=== PATIENT | male | born 1970 | race Caucasian/White ===

== ENCOUNTER 2016-12-23 16:38 | Emergency (ER) | payer SELFPAY | END 2016-12-23 16:55 | disposition home or self-care (01) | LOC: BURERS 16:38 | DX: K91.840 Postprocedural hemorrhage of a digestive system organ or structure following a digestive system procedure (principal); R04.0 Epistaxis; I10 Essential (primary) hypertension; F17.210 Nicotine dependence, cigarettes, uncomplicated | CPT/HCPCS: 99282 ==

== ENCOUNTER 2018-09-03 20:20 | Emergency (ER) | payer SELFPAY ==
[2018-09-03 21:28] LABS: ALT (SGPT) 49 U/L (8-55); AST (SGOT) 55 U/L (5-34); Albumin 4.7 g/dL (3.5-5.0); Alcohol 193 mg/dL (Less than 10); Alkaline Phosphatase 64 U/L (40-150); Anion Gap 16 mmol/L (10-20); BUN (Urea Nitrogen) Less than 4 mg/dL (8.9-20.6); Bilirubin, Total 0.8 mg/dL (0.2-1.2); Calc. Creatinine Clearance 0 mL/min (70-130); Calcium 9.4 mg/dL (7.8-10.44); Carbon Dioxide 23 mmol/L (22-29); Chloride 94 mmol/L (98-107); Estimated GFR-MDRD Greater than 90; Globulin 2.8 g/dL (2.4-3.5); Glucose 97 mg/dL (70-105); Potassium 4.4 mmol/L (3.5-5.1); Protein, Total 7.5 g/dL (6.0-8.3); Sodium 129 mmol/L (136-145)
[2018-09-03 21:32] LABS: CKMB 1.5 ng/mL (0-6.6); Troponin I Less than 0.010 ng/mL (< 0.028)
[2018-09-03 21:45] LABS: #Basophils 0.1 thou/uL (0.0-0.2); #Eosinphils 0.1 thou/uL (0.0-0.7); #Lymphocytes 2.5 thou/uL (1.20-3.40); #Monocytes 0.6 thou/uL (0.11-0.59); #Neutrophils 2.9 thou/uL (1.40-6.50); %Basophils 1.8 % (0.0-1.0); %Eosinophils 2.1 % (0.0-10.0); %Lymphocytes 40.8 % (21.0-51.0); %Neutrophils 46.3 % (42.0-75.0); Hemoglobin 15.6 g/dL (14.0-18.0); Mean Corpuscular HGB CONC 36.1 g/dL (32.0-36.0); Mean Corpuscular Hemoglobin 36.2 pg (27.0-31.0); Mean Platelet Volume 7.4 fL (7.4-10.4); PLT Morphology Comment Appears Decreased; Platelet Count 119 thou/uL (130-400); RBC Distribution Width 12.2 % (11.5-14.5); RBC Morphology Normal; Red Blood Cell (RBC) Count 4.32 mill/uL (4.70-6.10); White Blood Cell (WBC) Count 6.2 thou/uL (4.8-10.8)
--- NOTE | 2018-09-03 23:00 | CT ---
CT OF THE BRAIN WITHOUT CONTRAST: 09/03/18 Computed tomography of the brain was performed and compared with the prior study dated 06/14/13. Diffuse atrophy with mild to moderate compensatory dilatation of the ventricles is present. The degre e of atrophy has increased slightly in the interval. No intracranial mass, bleeding, or edema was fou nd. There is no sign of acute stroke. Atrophy is particularly prevalent in the cerebellar region. IMPRESSION: No acute intracranial findings. POS: HOME
== END 2018-09-03 22:15 | disposition home or self-care (01) ==
LOC: BURERS 20:20
DX: I10 Essential (primary) hypertension (principal); R42 Dizziness and giddiness; F10.20 Alcohol dependence, uncomplicated; Y90.6 Blood alcohol level of 120-199 mg/100 ml; F17.210 Nicotine dependence, cigarettes, uncomplicated; Z79.899 Other long term (current) drug therapy
CPT/HCPCS: 70450; 80053; 80307; 82553; 84484; 85025; 93005

== ENCOUNTER 2018-10-17 18:07 | Emergency (ER) | payer SELFPAY | END 2018-10-17 18:27 | disposition home or self-care (01) | LOC: BURERS 18:07 | DX: I10 Essential (primary) hypertension (principal); F17.210 Nicotine dependence, cigarettes, uncomplicated; Z79.899 Other long term (current) drug therapy | CPT/HCPCS: 99281 ==

== ENCOUNTER 2018-12-12 17:49 | Emergency (ER) | payer SELFPAY ==
[2018-12-12] MEDS ORDERED: Ketorolac Tromethamine 30 MG/ML VIAL ONE (18:04)
[2018-12-12] MEDS ORDERED: Fluorescein Opthalmic Strip ONE (18:05)
[2018-12-12] MEDS ORDERED: Tobramycin Sulfate 0.3% Ophth Susp 5 ml Bottle ONE (18:08)
== END 2018-12-12 18:30 | disposition home or self-care (01) ==
LOC: BURERS 17:49
DX: S05.12XA Contusion of eyeball and orbital tissues, left eye, initial encounter (principal); H11.32 Conjunctival hemorrhage, left eye; I10 Essential (primary) hypertension; F17.210 Nicotine dependence, cigarettes, uncomplicated; Z79.899 Other long term (current) drug therapy; Y33.XXXA Other specified events, undetermined intent, initial encounter
CPT/HCPCS: 99283; J1885

== ENCOUNTER 2020-02-15 10:40 | Emergency (ER) | payer SELFPAY ==
[2020-02-15 11:01] LABS: Mean Corpuscular HGB CONC 35.3 g/dL (32.0-36.0); Mean Corpuscular Hemoglobin 37.3 pg (27.0-31.0); Mean Platelet Volume 7.5 fL (7.4-10.4); Platelet Count 103 thou/uL (130-400); RBC Distribution Width 12.5 % (11.5-14.5); Red Blood Cell (RBC) Count 4.28 mill/uL (4.70-6.10); White Blood Cell (WBC) Count 6.7 thou/uL (4.8-10.8)
[2020-02-15 11:04] LABS: INR-International Normal Ratio 0.9; PTT 30.4 SEC (22.9-36.1); Prothrombin Time 12.1 sec (12.0-14.7)
[2020-02-15 11:06] LABS: #Basophils 0.1 thou/uL (0.0-0.2); #Eosinphils 0.1 thou/uL (0.0-0.7); #Lymphocytes 2.3 thou/uL (1.20-3.40); #Monocytes 0.7 thou/uL (0.11-0.59); #Neutrophils 3.5 thou/uL (1.40-6.50); %Basophils 1.5 % (0.0-1.0); %Eosinophils 1.6 % (0.0-10.0); %Lymphocytes 34.2 % (21.0-51.0); %Monocytes 10.9 % (0.0-10.0); %Neutrophils 51.9 % (42.0-75.0)
--- NOTE | 2020-02-15 11:08 | CT ---
CT BRAIN NONCONTRAST: DATE: 02/15/2020 10:55 AM HISTORY: 49-year-old male with acute stroke: Right upper extremity weakness since this morning. Dr. Beckwith verbally gave this stroke alert protocol report by telephone to Dr. Adamson of [facility] at 11:02 AM 02/15/2020. FINDINGS: There is no evidence of acute intra-axial or extra-axial hemorrhage. There is no midline shift or any other mass effect. There is no extra-axial fluid collection. There is no evidence of obstructive hydrocephalus. Calvarium is intact. There is diffuse brain parenchymal volume loss. There has been no interval change. IMPRESSION: 1) No acute intracranial findings. 2) involutional changes, greater than typical for this age group.
[2020-02-15 11:12] LABS: ALT (SGPT) 54 U/L (8-55); AST (SGOT) 67 U/L (5-34); Acetaminophen Less than 6.0 mcg/mL (10.0-30.0); Albumin 4.6 g/dL (3.5-5.0); Alcohol 114 mg/dL (Less than 10); Alkaline Phosphatase 68 U/L (40-110); Anion Gap 17 mmol/L (10-20); BUN (Urea Nitrogen) 5 mg/dL (8.9-20.6); Bilirubin, Total 0.6 mg/dL (0.2-1.2); Calc. Creatinine Clearance 0 mL/min (70-130); Calcium 9.5 mg/dL (7.8-10.44); Carbon Dioxide 23 mmol/L (22-29); Chloride 91 mmol/L (98-107); Estimated GFR-MDRD Greater than 90; Glucose 117 mg/dL (70-105); Potassium 4.4 mmol/L (3.5-5.1); Protein, Total 7.6 g/dL (6.0-8.3); Salicylate Less than 8.0 mg/dL (15.0-30.0); Sodium 127 mmol/L (136-145)
[2020-02-15] MEDS ORDERED: Iopamidol 370 76% 100 ML VIAL ONE (11:22)
[2020-02-15 11:23] LABS: MDiff Complete? YES; Macrocytosis SLIGHT = 6-15 cells (100X) (0-5/hpf); Platelet Morphology Comment Appears Decreased
--- NOTE | 2020-02-15 11:46 | CT ---
CT ANGIOGRAM NECK WITH CONTRAST CT ANGIOGRAM BRAIN WITH CONTRAST: DATE: 02/15/2020 11:12 AM HISTORY: 49-year-old male with acute stroke symptoms: Right upper extremity weakness since this morning. Dr. Beckwith verbally gave this stroke alert protocol report by telephone to Dr. Adamson at 11:44 AM 2019 TECHNIQUE: After IV contrast injection, arterial bolus chasing technique scan performed from aortic arch to vert ex of head. Coronal and sagittal 3-D MIP reconstructions. FINDINGS: The brachiocephalic, and the origins of the bilateral common carotid and left subclavian, arteries, a re obscured by streak artifact from dense contrast material in the left subclavian and brachiocephalic veins. Most of the left subclavian vein is also obscured. Focal plaque causing mild to moderate stenosis at origin of right vertebral artery. Left vertebral ar claudia is dominant. No other stenosis identified in the cervical portions of bilateral vertebral arteries or intracranial left vertebral artery. Right vertebral artery is diminutive but not excluded. No high-grade short segment acquired stenosis or occlusion identified involving basilar, P1 and P2 se gments of bilateral posterior cerebral, bilateral carotid siphons, M1 segments of bilateral middle cerebral, and A1 and A2 segments of bilateral anterior cerebral, arteries. Mild to moderate calcified plaque at proximal right internal carotid and right carotid bulb, causing mild stenosis. Heavily calcified and noncalcified atheromatous plaque at the proximal left internal carotid including carotid bulb, and origin of left external carotid. This results in severe, approxim ately 80% or greater stenosis of the proximal left internal carotid artery. No evidence of dural venous sinus thrombosis. IMPRESSION: 1) no evidence of thrombosis or occlusion of M1 segments of middle cerebral arteries. 2) heavy atheromatous plaque causing severe stenosis of proximal left internal carotid artery.
[2020-02-15] MEDS ORDERED: Nicotine 21 MG PATCH TOP SCH (12:00)
== END 2020-02-15 12:08 | disposition short-term general hospital (02) ==
LOC: BURERS 10:40
DX: I63.9 Cerebral infarction, unspecified (principal); G81.94 Hemiplegia, unspecified affecting left nondominant side; I10 Essential (primary) hypertension; F17.210 Nicotine dependence, cigarettes, uncomplicated; Z79.899 Other long term (current) drug therapy; R47.1 Dysarthria and anarthria
CPT/HCPCS: 36416; 70450; 70496; 70498; 80053; 80307; 84484; 85025; 85610; 85730; 93005; Q9967

== ENCOUNTER 2021-09-07 15:04 | Emergency (ER) | payer OTHER | END 2021-09-07 16:30 | disposition home or self-care (01) | LOC: BURERS 15:04 | DX: S42.255A Nondisplaced fracture of greater tuberosity of left humerus, initial encounter for closed fracture (principal); I10 Essential (primary) hypertension; F17.210 Nicotine dependence, cigarettes, uncomplicated; Z79.899 Other long term (current) drug therapy; W22.8XXA Striking against or struck by other objects, initial encounter ==

== ENCOUNTER 2021-09-10 23:00 | Emergency (ER) | payer OTHER ==
[~2021-09-10 23:00] MED LIST: Iopamidol 370 76% 100 ML VIAL ONE
[2021-09-11 00:10] LABS: #Basophils 0.1 thou/uL (0.0-0.2); #Eosinphils 0.1 thou/uL (0.0-0.7); #Lymphocytes 2.2 thou/uL (1.20-3.40); #Monocytes 0.6 thou/uL (0.11-0.59); #Neutrophils 2.5 thou/uL (1.40-6.50); %Eosinophils 2.6 % (0.0-10.0); %Lymphocytes 39.3 % (21.0-51.0); %Monocytes 10.9 % (0.0-10.0); %Neutrophils 46.2 % (42.0-75.0); Hemoglobin 9.8 g/dL (14.0-18.0); Mean Corpuscular HGB CONC 36.4 g/dL (32.0-36.0); Mean Corpuscular Hemoglobin 36.7 pg (27.0-31.0); Mean Platelet Volume 8.9 fL (7.4-10.4); Platelet Count 66 thou/uL (130-400); Red Blood Cell (RBC) Count 2.66 mill/uL (4.70-6.10); White Blood Cell (WBC) Count 5.5 thou/uL (4.8-10.8)
[2021-09-11 00:22] LABS: ALT (SGPT) 32 U/L (8-55); AST (SGOT) 57 U/L (5-34); Albumin 3.4 g/dL (3.5-5.0); Alkaline Phosphatase 82 U/L (40-110); Anion Gap 16 mmol/L (10-20); BUN (Urea Nitrogen) Less than 4 mg/dL (8.4-25.7); Bilirubin, Total 0.6 mg/dL (0.2-1.2); Calc. Creatinine Clearance 0 mL/min (70-130); Calcium 8.7 mg/dL (7.8-10.44); Carbon Dioxide 23 mmol/L (22-29); Chloride 92 mmol/L (98-107); Globulin 2.4 g/dL (2.4-3.5); Glucose 95 mg/dL (70-105); Potassium 3.9 mmol/L (3.5-5.1); Protein, Total 5.8 g/dL (6.0-8.3); Sodium 127 mmol/L (136-145)
[2021-09-11 00:27] LABS: INR-International Normal Ratio 0.9; Prothrombin Time 12.5 sec (12.0-14.7)
[2021-09-11 00:28] LABS: PTT 31.2 sec (22.9-36.1)
[2021-09-11 00:47] LABS: Platelet Morphology Comment Appears Decreased; RBC Morphology Normal
== END 2021-09-11 01:15 | disposition home or self-care (01) ==
LOC: BURERS 23:00
DX: S42.202A Unspecified fracture of upper end of left humerus, initial encounter for closed fracture (principal); S20.219A Contusion of unspecified front wall of thorax, initial encounter; K74.60 Unspecified cirrhosis of liver; D69.6 Thrombocytopenia, unspecified; I10 Essential (primary) hypertension; F17.210 Nicotine dependence, cigarettes, uncomplicated; Z79.899 Other long term (current) drug therapy
CPT/HCPCS: 71260; 80053; 85025; 85610; 85730; Q9967